=== PATIENT | female | born 1945 | race Two or more races ===

== ENCOUNTER 2024-11-30 22:19 | Inpatient (IN) ==
--- NOTE | 2024-11-30 22:51 | ED.ABDFE ---
HPI Time Seen Time Seen by Provider: 11/30/24 22:39 Complaint Doctors Chief Complaint Comments: 79-year-old female, hx DM, HTN, GERD, abdominal surgical history of , no other medical history or surgical history, complains of lower abdominal pain for the past 3 months, became markedly worse the past 2 days, right upper quadrant and right lower quadrant abdominal pain, accompanied by 3 episodes of vomiting earlier today, 2 episodes of diarrhea yesterday. Denies fever. Denies other complaints. Chief Complaint:: PT AMBULATORY IN ED WITH COMPLAINTS OF BILATERAL LOWER QUADRANT PAIN X2 DAYS. WITH N/V & DIARRHEA WORSE AFTER EATING. STATES HER WHOLE ABDOMEN HANDY WHEN SHE TRIES TO EAT, NO REBOUND TENDERNESS NOTED BUT ABDOMEN APPEARS DISTENED. PT HAS HX OF ASCITES PER SON COVID-19 Coronavirus risk:travel/contact w/high risk person: No Has patient experienced Coronavirus symptoms: No Source History Provided: Patient Mode of arrival Mode of Arrival: Ambulatory Timing Onset of Chief Complaint: 11/29/24 PMH PMH Past Medical History: No Past Medical History: Diabetes, GERD and Hypertension Past Surgical History: Yes Surgical History: Family History History of Family Medical Conditions: Yes Family Medical History: Hypertension Social History Do you use any recreational Drugs:: No Travel Risk Coronavirus risk:travel/contact w/high risk person: No Has patient experienced Coronavirus symptoms: No Infectious screening Have you traveled outside the country in the last 6 months?: No Isolation: Standard ROS Review of Systems Constitutional: negative Chills or Fever Gastrointestinal/Abdominal: Abdominal Pain (RUQ & RLQ), Diarrhea, Nausea and Vomiting All Other Systems: Reviewed and Negative PE Vital Signs Vitals: Vital Signs Temperature 97.8 F Pulse Rate 64 Respiratory Rate 18 Respiratory Rate 20 Blood Pressure 132/60 O2 Sat by Pulse Oximetry 95 General Limitations: No Limitations and Language Barrier General Appearance: Alert and In No Apparent Distress Head Head Exam: Normal Inspection Eyes Eye exam: Normal Appearance ENT ENT Exam: Normal Exam Neck Neck Exam: Normal Inspection Chest Chest Inspection: Normal Inspection Respiratory Respiratory Exam: Normal Lung Sounds Bilat Cardiovascular Cardiovascular Exam: Regular Rate and Normal Rhythm Abdominal Exam Abdominal Exam: Soft and Tenderness; negative Distention, Guarding, Rebound or Rigidity Abdominal Tenderness: RUQ and RLQ Rectal Rectal Exam: Deferred Back Back Exam: Normal Inspection Extremeties Extremities Exam: Normal Inspection Neurologic Neurological Exam: Alert and Oriented X3 Psychiatric Psychiatric Exam: Normal Affect and Normal Mood Skin Skin Exam: Warm, Dry and Intact ROR Labs Reviewed Laboratory Results Reviewed?: Yes 11/30/24 22:55 11/30/24 22:55 Laboratory: WBC 3.5 X10^3/uL (3.6-10.0) L 11/30/24 22:55 RBC 4.15 X10^6/uL (3.5-5.4) 11/30/24 22:55 Hgb 13.3 g/dL (12.0-16.0) 11/30/24 22:55 Hct 39.3 % (36.0-47.0) 11/30/24 22:55 MCV 94.9 fL (80.0-100.0) 11/30/24 22: MCH 32.2 pg (27.0-34.0) 11/30/24 22: MCHC 33.9 g/dL (33.0-35.0) 11/30/24 22: RDW 14.1 % (11.6-16.5) 11/30/24 22:55 Plt Count 175 X10^3/uL (150.0-450.0) 11/30/24 22: MPV 8.0 fL (7.4-11.0) 11/30/24 22:55 Neut % (Auto) 70.8 % (42.0-75.0) 11/30/24 22:55 Lymph % (Auto) 17.4 % (21.0-51.0) L 11/30/24 22:55 [place] % (Auto) 7.5 % (0.0-13.0) 11/30/24 22:55 Eos % (Auto) 3.5 % (0.9-2.9) H 11/30/24 22:55 Baso % (Auto) 0.8 % (0.2-1.0) 11/30/24 22:55 Neut # (Auto) 2.5 x10^3/uL (2.2-4.8) 11/30/24 22:55 Lymph # (Auto) 0.6 X10^3/uL (1.3-2.9) L 11/30/24 22:55 [place] # (Auto) 0.3 x10^3/uL (0.3-0.8) 11/30/24 22:55 Eos # (Auto) 0.1 x10^3/uL (0.0-0.2) 11/30/24 22:55 Baso # (Auto) 0.0 X10^3/uL (0.0-0.1) 11/30/24 22:55 Absolute Nucleated RBC 0.3 /100WBC 11/30/24 22:55 Sodium 142 mmol/L (136-145) 11/30/24 22:55 Corrected Sodium TNP 11/30/24 22:55 Potassium 3.9 mmol/L (3.5-5.1) 11/30/24 22:55 Chloride 106 mmol/L (98-107) 11/30/24 22:55 Carbon Dioxide 31.9 mmol/L (21-32) 11/30/24 22:55 BUN 21 mg/dL (7-18) H 11/30/24 22:55 Creatinine 0.59 mg/dL (0.55-1.02) 11/30/24 22:55 Est GFR (MDRD) Af Amer > 60 (>60) 11/30/24 22:55 Est GFR (MDRD) Non-Af > 60 (>60) 11/30/24 22:55 Glucose 98 mg/dL (65-99) 11/30/24 22:55 Calcium 8.5 mg/dL (8.5-10.1) 11/30/24 22:55 Corrected Calcium 9.1 mg/dL (8.5-10.1) 11/30/24 22:55 Total Bilirubin 0.60 mg/dL (0.2-1.0) 11/30/24 22:55 AST 37 Units/L (15-37) 11/30/24 22:55 ALT 41 Units/L (12-78) 11/30/24 22:55 Alkaline Phosphatase 102 Units/L (46-116) 11/30/24 22:55 Total Protein 6.8 g/dL (6.4-8.2) 11/30/24 22:55 Albumin 3.3 g/dL (3.4-5.0) L 11/30/24 22:55 Globulin 3.5 g/dL (2.5-4.5) 11/30/24 22:55 Albumin/Globulin Ratio 0.9 Ratio (1.1-2.1) L 11/30/24 22:55 Lipase 18 Units/L (16-77) 11/30/24 22:55 Specimen Type Clean catch urine 11/30/24 23:42 Urine Color Estella (YELLOW) 11/30/24 23:42 Urine Appearance Clear (CLEAR) 11/30/24 23:42 Urine pH 6.0 (5.0 - 8.0) 11/30/24 23:42 Ur Specific [place] 1.015 (1.000-1.030) 11/30/24 23:42 Urine Protein 2+ (NEGATIVE) 11/30/24 23:42 Urine Glucose (UA) Negative (NEGATIVE) 11/30/24 23:42 Urine Ketones Negative (NEGATIVE) 11/30/24 23:42 Urine Blood 1+ (NEGATIVE) 11/30/24 23:42 Urine Nitrite Negative (NEGATIVE) 11/30/24 23:42 Urine Bilirubin Negative (NEGATIVE) 11/30/24 23:42 Urine Urobilinogen 2+ (NORMAL) 11/30/24 23:42 Ur Leukocyte Esterase 3+ (NEGATIVE) 11/30/24 23:42 Urine RBC 3-5 /HPF (0-3) A 11/30/24 23:42 Urine WBC 5-10 /HPF (0-5) A 11/30/24 23:42 Ur Squamous Epith Cells Moderate /HPF (NEGATIVE) 11/30/24 23:42 Urine Bacteria Trace /HPF (NEGATIVE) 11/30/24 23:42 Urine Mucus Many /HPF (NEGATIVE) 11/30/24 23:42 Ur Culture Indicated? No/not indicated 11/30/24 23:42 Opioid Opioid Risk Tool Age (Nestor box if 16-45): No History of Preadolescent Sexual Abuse: No Total: 0 Total Score Risk Category: Low Risk Copyright: Reddy predicting aberrant behaviors Discharge Plan Diagnosis Discharge Problem: Acute UTI, SBO (small bowel obstruction), Ileus Discharge Plan Patient Disposition: ADMITTED INPATIENT Condition: Stable Health Concerns: Post Hospitalization: new medications and changes needed to prevent readmission or further decline. Pt educated and given instructions on all concerns. Plan of Treatment: Continue with present treatment and follow up plan. Pt is to keep follow up appointment as instructed and take medications as ordered. Orders to Discharge Patient Discharge Orders: Transfer (Routine); Ordered 12/01/24 Ordered By: Andre Montana Follow ups/Referrals Follow ups/Referrals: NFD,None [Primary Care Provider] - 3 days Instructions Stand Alone Forms: Find Help Web Site, Post Hospital Follow Up Care ADDITIONAL NOTES Additional Notes Additional Notes: pt admitted to Dr Stephen
[2024-11-30] MEDS: ZOFRAN INJ 4 MG VIAL IVP ONE (22:59)
[2024-11-30] MEDS: MORPHINE SULFATE INJ 4 MG IVP ONE (23:01)
[2024-11-30 23:09] LABS: BASOPHILS % (AUTO) 0.8 % (0.2-1.0); EOSINOPHILS # (AUTO) 0.1 x10^3/uL (0.0-0.2); EOSINOPHILS % (AUTO) 3.5 % (0.9-2.9); HEMATOCRIT 39.3 % (36.0-47.0); HEMOGLOBIN 13.3 g/dL (12.0-16.0); LYMPHOCYTES # (AUTO) 0.6 X10^3/uL (1.3-2.9); LYMPHOCYTES % (AUTO) 17.4 % (21.0-51.0); MEAN CORPUSCULAR HEMOGLOBIN 32.2 pg (27.0-34.0); MEAN CORPUSCULAR HGB CONC 33.9 g/dL (33.0-35.0); MEAN CORPUSCULAR VOLUME 94.9 fL (80.0-100.0); MONOCYTES # (AUTO) 0.3 x10^3/uL (0.3-0.8); MONOCYTES % (AUTO) 7.5 % (0.0-13.0); NEUTROPHILS # (AUTO) 2.5 x10^3/uL (2.2-4.8); NEUTROPHILS % (AUTO) 70.8 % (42.0-75.0); PLATELET COUNT 175 X10^3/uL (150.0-450.0); RED BLOOD COUNT 4.15 X10^6/uL (3.5-5.4); RED CELL DISTRIBUTION WIDTH 14.1 % (11.6-16.5); WHITE BLOOD COUNT 3.5 X10^3/uL (3.6-10.0)
[2024-11-30 23:14] LABS: ALANINE AMINOTRANSFERASE 41 Units/L (12-78); ALBUMIN 3.3 g/dL (3.4-5.0); ALKALINE PHOSPHATASE 102 Units/L (46-116); ASPARTATE AMINO TRANSFERASE 37 Units/L (15-37); BLOOD UREA NITROGEN 21 mg/dL (7-18); CALCIUM 8.5 mg/dL (8.5-10.1); CARBON DIOXIDE 31.9 mmol/L (21-32); CHLORIDE 106 mmol/L (98-107); COR CA(FOR HYPOALB) 9.1 mg/dL (8.5-10.1); CREATININE 0.59 mg/dL (0.55-1.02); GLUCOSE 98 mg/dL (65-99); LIPASE 18 Units/L (16-77); SODIUM 142 mmol/L (136-145); TOTAL PROTEIN 6.8 g/dL (6.4-8.2); eGFR NON BLACK RACES > 60 (>60)
[2024-11-30 23:20] LABS: POTASSIUM 3.9 mmol/L (3.5-5.1)
[2024-11-30 23:53] LABS: BILIRUBIN,URINE NEGATIVE (NEGATIVE); BLOOD/HEMOGLOBIN,URINE 1+ (NEGATIVE); GLUCOSE, URINE NEGATIVE (NEGATIVE); KETONES,URINE NEGATIVE (NEGATIVE); LEUKOCYTE ESTERASE ,URINE 3+ (NEGATIVE); NITRITES,URINE NEGATIVE (NEGATIVE); PROTEIN,URINE 2+ (NEGATIVE); UROBILINOGEN,URINE 2+ (NORMAL)
--- NOTE | 2024-11-30 23:54 | CT ---
EXAM:ABDCMEN/PELVIS WITH CONHISTORY:PT AMBULATORY IN ED WITH COMPLAINTS OF BILATERAL LOWER QUADRANT PAIN X2 DAYS. WITH N/V & DIARRHEA WORSE AFTER EATING. PT HAS A HX OF ASCITES; HTN, DM, GERD SX: CSECTIONCOMPARISON:October 05, 2023TECHNIQUE:Axial CT images of the abdomen and pelvis were obtained after the administration of 100 mL Omnipaque 350 IV contrast and reformatted into coronal and sagittal planes for further evaluation.Radiation dose: 174.95 mGy-cm total DLPFINDINGS:Lung bases are clear.Stomach appears normal.Solid visceral organs of the upper abdomen are unremarkable.Gallbladder appears normal with no biliary dilatation.Homogeneous enhancement of the kidneys without hydronephrosis or hydroureter.Unremarkable appearance of the urinary bladder.Imaged reproductive structures are unremarkable.Colonic diverticulosis without diverticulitis.Multiple loops of mildly distended fluid-filled small bowel throughout the majority of the abdomen with the distal small bowel largely decompressed.No evidence of acute appendicitis.No pneumoperitoneum.No significant fluid collection.No adenopathy.No acute osseous abnormality.Grade 1 anterolisthesis of L4 on L5 secondary to posterior degenerative changes.IMPRESSION:1. Multiple loops of mildly distended fluid-filled small bowel throughout the majority of the abdomen with the distal small bowel largely decompressed. The transition point from dilated to decompressed small bowel is not definitively identified. Findings could represent a nonspecific enteritis, ileus or mild mechanical obstruction.2. Colonic diverticulosis without diverticulitis.THIS IS AN ELECTRONICALLY VERIFIED FINAL REPORT11/30/2024 11:50 PM - Electronically signed by Elliot Stoner MD
[2024-11-30 23:56] LABS: APPEARANCE,URINE CLEAR (CLEAR); BACTERIA,URINE TRACE /HPF (NEGATIVE); COLOR,URINE AMBER (YELLOW); SQUAMOUS EPITHELIAL CELL,UR MODERATE /HPF (NEGATIVE)
[2024-12-01] MEDS: ROCEPHIN VIAL 1 GRAM 1 G in NS 100 ML IV 100 ML IV ONE (00:33)
[2024-12-01] MEDS: NS 1,000 ML IV 1,000 ML IV SCH (01:16)
[2024-12-01 01:43] VITALS: BMI 23.9
[2024-12-01 04:59] LABS: BASOPHILS % (AUTO) 0.5 % (0.2-1.0); EOSINOPHILS # (AUTO) 0.1 x10^3/uL (0.0-0.2); EOSINOPHILS % (AUTO) 4.4 % (0.9-2.9); HEMOGLOBIN 12.9 g/dL (12.0-16.0); LYMPHOCYTES # (AUTO) 0.6 X10^3/uL (1.3-2.9); LYMPHOCYTES % (AUTO) 23.1 % (21.0-51.0); MEAN CORPUSCULAR HEMOGLOBIN 32.2 pg (27.0-34.0); MEAN CORPUSCULAR HGB CONC 33.8 g/dL (33.0-35.0); MEAN CORPUSCULAR VOLUME 95.2 fL (80.0-100.0); MONOCYTES # (AUTO) 0.3 x10^3/uL (0.3-0.8); MONOCYTES % (AUTO) 11.1 % (0.0-13.0); NEUTROPHILS # (AUTO) 1.5 x10^3/uL (2.2-4.8); NEUTROPHILS % (AUTO) 60.9 % (42.0-75.0); PLATELET COUNT 155 X10^3/uL (150.0-450.0); RED BLOOD COUNT 3.99 X10^6/uL (3.5-5.4); WHITE BLOOD COUNT 2.5 X10^3/uL (3.6-10.0)
[2024-12-01 05:03] LABS: INR 1.11 (0.8-1.3)
[2024-12-01 05:27] LABS: ALANINE AMINOTRANSFERASE 34 Units/L (12-78); ALKALINE PHOSPHATASE 98 Units/L (46-116); ASPARTATE AMINO TRANSFERASE 26 Units/L (15-37); BLOOD UREA NITROGEN 17 mg/dL (7-18); CALCIUM 8.2 mg/dL (8.5-10.1); CARBON DIOXIDE 31.4 mmol/L (21-32); CHLORIDE 104 mmol/L (98-107); CHOL/HDL RATIO 2.3 (0.0-5.0); CHOLESTEROL 122 mg/dL (0-200); CREATININE 0.46 mg/dL (0.55-1.02); GLUCOSE 89 mg/dL (65-99); HDL CHOLESTEROL 54 mg/dL (40-60); MAGNESIUM 1.9 mg/dL (2.0-2.9); POTASSIUM 3.6 mmol/L (3.5-5.1); SODIUM 139 mmol/L (136-145); TOTAL PROTEIN 6.3 g/dL (6.4-8.2); TRIGLYCERIDES 48 mg/dL (0-150); eGFR NON BLACK RACES > 60 (>60)
[2024-12-01] MEDS: OMNIPAQUE 350 mg/mL 100 mL BTL 100 ML ONE (05:29)
[2024-12-01] MEDS: NS 100 ML IV 100 ML ONE (05:29)
[2024-12-01] MEDS ORDERED: CONSULT PHARMACY - POTASSIUM & MAGNESIUM XX SCH (07:00)
[2024-12-01] MEDS ORDERED: MAG-OX TAB PO SCH (09:00)
[2024-12-01] MEDS: K-DUR TAB 20 MEQ PO SCH (10:16)
[2024-12-01] MEDS: NS + KCL 20 MEQ/L 1,000 ML with MAGNESIUM SULFATE 50% INJ VIAL 1 G IV SCH (11:00)
--- NOTE | 2024-12-01 12:39 | DR.H&P ---
H&P History & Physical for Day of: H&P Date: 12/01/24 Chief Complaint Chief Complaint: Abdominal pain History of Present Illness History of Present Illness: Patient presented to the ER from home with worsening lower abdominal pain. Initial concern was for UTI but CT showed partial small bowel obstruction. She is feeling much better this morning with no nausea, vomiting, or diarrhea. She has passed gas but not tried to eat anything. Came to the ER due to not eating or drinking anything for 2 days. When she tried to drink some water yesterday she had severe, sharp pains in her abdomen with a burning sensation. She has been seeing GI in [place] over the last 3 to 4 years for similar presentations. Only abdominal surgeries are section. ROS: Limited due to language barrier. Son at bedside was used as an certified court interpreter. 12 point ROS negative except as noted above. PE: Elderly female in no acute distress. Alert. Head NCAT. EOMI. Hearing intact conversation. Heart regular rate and rhythm. Lungs are clear. Belly is soft with lower abdominal tenderness. Bowel sounds are hypoactive. Mood and affect are guarded. No swelling of her extremities. Past Medical History Past Medical History: Diabetes, GERD and Hypertension Past Surgical History Surgical History: Family History Family Medical History: Hypertension Social History Does patient currently use any type of tobacco product: No Type of Tobacco Use: None Does any household member use tobacco: No Alcohol Use: None Drug Use: None Medications Home Medications: Home Medications Medication Instructions Recorded Confirmed Type NK 12/01/24 12/01/24 History Allergies Allergies Allergy/AdvReac Type Severity Reaction Status Date / Time No Known Drug Allergies Allergy Verified 11/30/24 22:30 Labs 12/01/24 04:33 12/01/24 04:33 Labs: Laboratory WBC 2.5 X10^3/uL (3.6-10.0) L 12/01/24 04:33 RBC 3.99 X10^6/uL (3.5-5.4) 12/01/24 04:33 Hgb 12.9 g/dL (12.0-16.0) 12/01/24 04:33 Hct 38.0 % (36.0-47.0) 12/01/24 04:33 MCV 95.2 fL (80.0-100.0) 12/01/24 04:33 MCH 32.2 pg (27.0-34.0) 12/01/24 04:33 MCHC 33.8 g/dL (33.0-35.0) 12/01/24 04:33 RDW 14.0 % (11.6-16.5) 12/01/24 04:33 Plt Count 155 X10^3/uL (150.0-450.0) 12/01/24 04:33 MPV 8.0 fL (7.4-11.0) 12/01/24 04:33 Neut % (Auto) 60.9 % (42.0-75.0) 12/01/24 04:33 Lymph % (Auto) 23.1 % (21.0-51.0) 12/01/24 04:33 [place] % (Auto) 11.1 % (0.0-13.0) 12/01/24 04:33 Eos % (Auto) 4.4 % (0.9-2.9) H 12/01/24 04:33 Baso % (Auto) 0.5 % (0.2-1.0) 12/01/24 04:33 Neut # (Auto) 1.5 x10^3/uL (2.2-4.8) L 12/01/24 04:33 Lymph # (Auto) 0.6 X10^3/uL (1.3-2.9) L 12/01/24 04:33 [place] # (Auto) 0.3 x10^3/uL (0.3-0.8) 12/01/24 04:33 Eos # (Auto) 0.1 x10^3/uL (0.0-0.2) 12/01/24 04:33 Baso # (Auto) 0.0 X10^3/uL (0.0-0.1) 12/01/24 04:33 Absolute Nucleated RBC 0.0 /100WBC 12/01/24 04:33 PT 14.0 SECONDS (11.8-14.3) 12/01/24 04:33 INR Target Range - 12/01/24 04:33 INR 1.11 (0.8-1.3) 12/01/24 04:33 APTT 32.5 SECONDS (22.9-36.5) 12/01/24 04:33 PTT Comment - 12/01/24 04:33 Sodium 139 mmol/L (136-145) 12/01/24 04:33 Corrected Sodium TNP 12/01/24 04:33 Potassium 3.6 mmol/L (3.5-5.1) 12/01/24 04:33 Chloride 104 mmol/L (98-107) 12/01/24 04:33 Carbon Dioxide 31.4 mmol/L (21-32) 12/01/24 04:33 BUN 17 mg/dL (7-18) 12/01/24 04:33 Creatinine 0.46 mg/dL (0.55-1.02) L 12/01/24 04:33 Est GFR (MDRD) Af Amer > 60 (>60) 12/01/24 04:33 Est GFR (MDRD) Non-Af > 60 (>60) 12/01/24 04:33 Glucose 89 mg/dL (65-99) 12/01/24 04:33 Calcium 8.2 mg/dL (8.5-10.1) L 12/01/24 04:33 Corrected Calcium 9.0 mg/dL (8.5-10.1) 12/01/24 04:33 Magnesium 1.9 mg/dL (2.0-2.9) L 12/01/24 04:33 Total Bilirubin 0.30 mg/dL (0.2-1.0) 12/01/24 04:33 AST 26 Units/L (15-37) 12/01/24 04:33 ALT 34 Units/L (12-78) 12/01/24 04:33 Alkaline Phosphatase 98 Units/L (46-116) 12/01/24 04:33 Total Protein 6.3 g/dL (6.4-8.2) L 12/01/24 04:33 Albumin 3.0 g/dL (3.4-5.0) L 12/01/24 04:33 Globulin 3.3 g/dL (2.5-4.5) 12/01/24 04:33 Albumin/Globulin Ratio 0.9 Ratio (1.1-2.1) L 12/01/24 04:33 Triglycerides 48 mg/dL (0-150) 12/01/24 04:33 Cholesterol 122 mg/dL (0-200) 12/01/24 04:33 LDL Cholesterol, Calc 58 mg/dL (0-100) 12/01/24 04:33 HDL Cholesterol 54 mg/dL (40-60) 12/01/24 04:33 Cholesterol/HDL Ratio 2.3 (0.0-5.0) 12/01/24 04:33 Lipase 18 Units/L (16-77) 11/30/24 22:55 Specimen Type Clean catch urine 11/30/24 23:42 Urine Color Estella (YELLOW) 11/30/24 23:42 Urine Appearance Clear (CLEAR) 11/30/24 23:42 Urine pH 6.0 (5.0 - 8.0) 11/30/24 23:42 Ur Specific [place] 1.015 (1.000-1.030) 11/30/24 23:42 Urine Protein 2+ (NEGATIVE) 11/30/24 23:42 Urine Glucose (UA) Negative (NEGATIVE) 11/30/24 23:42 Urine Ketones Negative (NEGATIVE) 11/30/24 23:42 Urine Blood 1+ (NEGATIVE) 11/30/24 23:42 Urine Nitrite Negative (NEGATIVE) 11/30/24 23:42 Urine Bilirubin Negative (NEGATIVE) 11/30/24 23:42 Urine Urobilinogen 2+ (NORMAL) 11/30/24 23:42 Ur Leukocyte Esterase 3+ (NEGATIVE) 11/30/24 23:42 Urine RBC 3-5 /HPF (0-3) A 11/30/24 23:42 Urine WBC 5-10 /HPF (0-5) A 11/30/24 23:42 Ur Squamous Epith Cells Moderate /HPF (NEGATIVE) 11/30/24 23:42 Urine Bacteria Trace /HPF (NEGATIVE) 11/30/24 23:42 Urine Mucus Many /HPF (NEGATIVE) 11/30/24 23:42 Ur Culture Indicated? No/not indicated 11/30/24 23:42 Physical Exam Vital Signs: Vital Signs Temperature 97.8 F Temperature 97.8 F Pulse Rate [Left Radial] 55 Pulse Rate [Left Radial] 57 Respiratory Rate 31 Respiratory Rate 18 Respiratory Rate 18 Blood Pressure [Left Arm] 145/66 Blood Pressure [Left Arm] 176/76 O2 Sat by Pulse Oximetry 100 O2 Sat by Pulse Oximetry 97 Assessment/Plan (1) SBO (small bowel obstruction): Narrative Support Text: N.p.o. for now. IV fluids. Appreciate surgery input. Status: Acute (2) Ileus: Narrative Support Text: See above. Status: Acute (3) Type 2 diabetes mellitus without complications: Qualifiers: Diabetes mellitus nursing home insulin use: without exterminator helper termite use Qualified Code(s): E11.9 - Type 2 diabetes mellitus without complications Narrative Support Text: Monitor closely. Status: Acute (4) Essential (primary) hypertension: Narrative Support Text: Permissive hypertension for now Status: Acute
--- NOTE | 2024-12-01 14:11 | US ---
EXAMINATION: GALL BLADDER HISTORY: abd pain, food intolerance, sbo ,utiileus; . COMPARISON STUDY: None. TECHNIQUE: Real-time grayscale, color flow, duplex Doppler spectral analysis ultrasound of the right upper abdom inal quadrant FINDINGS: Liver measures 13 cm longitudinal oblique dimension no focal liver lesions seen. Normal venous wavef orms within the main portal vein and normal arterial waveforms main hepatic artery. The hepatic vein s are patent on the color flow images. Gallbladder mildly distended. Gallbladder rivera measure 2.4 mm diameter. No pericholecystic fluid. Common bile duct measures 4.2 mm diameter. No intrahepatic bile duct dilatation. No pancreatic duct dilatation. Limited views of the right kidney show no hydronephrosis IMPRESSION: The biliary tract has a normal appearance. THIS IS AN ELECTRONICALLY VERIFIED FINAL REPORT 12/01/2024 2:07 PM - Electronically signed by Darleen Grimes MD
[2024-12-01] MEDS: MORPHINE SULFATE INJ 2 MG INJ IVP PRN (15:02)
--- NOTE | 2024-12-01 16:17 | RAD ---
EXAM: KUB HISTORY: abd pain; HTN, DM, GERD SX: CSECTION COMPARISON: CT dated 11/30/2024 TECHNIQUE: Abdomen AP supine FINDINGS: No abnormally distended bowel loops. Scattered air-filled small and large bowel loops. No evidence of free peritoneal air. Clear lung bases. IMPRESSION: Nonobstructive bowel gas pattern. THIS IS AN ELECTRONICALLY VERIFIED FINAL REPORT 12/01/2024 4:08 PM - Electronically signed by Bi Diaz MD
[2024-12-02 06:02] LABS: BASOPHILS % (AUTO) 0.4 % (0.2-1.0); EOSINOPHILS # (AUTO) 0.1 x10^3/uL (0.0-0.2); EOSINOPHILS % (AUTO) 2.2 % (0.9-2.9); HEMATOCRIT 39.8 % (36.0-47.0); HEMOGLOBIN 13.7 g/dL (12.0-16.0); LYMPHOCYTES # (AUTO) 0.7 X10^3/uL (1.3-2.9); LYMPHOCYTES % (AUTO) 19.5 % (21.0-51.0); MEAN CORPUSCULAR HEMOGLOBIN 32.7 pg (27.0-34.0); MEAN CORPUSCULAR HGB CONC 34.4 g/dL (33.0-35.0); MEAN CORPUSCULAR VOLUME 95.2 fL (80.0-100.0); MEAN PLATELET VOLUME 8.1 fL (7.4-11.0); MONOCYTES # (AUTO) 0.3 x10^3/uL (0.3-0.8); MONOCYTES % (AUTO) 7.8 % (0.0-13.0); NEUTROPHILS # (AUTO) 2.7 x10^3/uL (2.2-4.8); NEUTROPHILS % (AUTO) 70.1 % (42.0-75.0); PLATELET COUNT 163 X10^3/uL (150.0-450.0); RED BLOOD COUNT 4.18 X10^6/uL (3.5-5.4); RED CELL DISTRIBUTION WIDTH 13.4 % (11.6-16.5); WHITE BLOOD COUNT 3.8 X10^3/uL (3.6-10.0)
[2024-12-02 06:24] LABS: ALANINE AMINOTRANSFERASE 29 Units/L (12-78); ALBUMIN 3.2 g/dL (3.4-5.0); ALKALINE PHOSPHATASE 105 Units/L (46-116); ASPARTATE AMINO TRANSFERASE 26 Units/L (15-37); BLOOD UREA NITROGEN 14 mg/dL (7-18); CALCIUM 8.2 mg/dL (8.5-10.1); CARBON DIOXIDE 25.1 mmol/L (21-32); CHLORIDE 105 mmol/L (98-107); COR CA(FOR HYPOALB) 8.8 mg/dL (8.5-10.1); CREATININE 0.49 mg/dL (0.55-1.02); GLUCOSE 53 mg/dL (65-99); MAGNESIUM 2.1 mg/dL (2.0-2.9); POTASSIUM 3.8 mmol/L (3.5-5.1); SODIUM 140 mmol/L (136-145); TOTAL PROTEIN 6.5 g/dL (6.4-8.2); eGFR NON BLACK RACES > 60 (>60)
--- NOTE | 2024-12-02 06:59 | RAD ---
EXAMINATION:KUBHISTORY:PARTIAL SBO; .COMPARISON STUDY:KUB 12/02/2019TECHNIQUE:Single supine AP view of the abdomenFINDINGS:Jtxo-vu-nejhhavd amount of feces throughout the colon. Visualized soft tissue outlines and osseous structures appear intact. Lower bony pelvis was not imaged.IMPRESSION:Jxce-ej-eisjfgqj amount of feces.THIS IS AN ELECTRONICALLY VERIFIED FINAL REPORT12/02/2024 6:56 AM - Electronically signed by Darleen Grimes MD
[2024-12-02] MEDS: D50W ABBOJECT SYR IV ONE (07:42)
[2024-12-02] MEDS: LINZESS PO SCH (09:50)
[2024-12-02] MEDS: LOVENOX INJ 40 MG SYR SC SCH (09:51)
[2024-12-02 13:36] VITALS: BP 147/65; PULSE 61; RESP 34; TEMP 97.6; O2SAT 98
--- NOTE | 2024-12-05 09:36 | PCM.DCPLAN ---
DISCHARGE SUMMARY Admission Date Date of Admission: 11/30/24 Discharge Date Discharge Date: 12/02/24 Admission Diagnoses (1) SBO (small bowel obstruction): Status: Acute (2) Ileus: Status: Acute (3) Type 2 diabetes mellitus without complications: Status: Acute (4) Essential (primary) hypertension: Status: Acute Discharge Medications Discharge Medications: Home Medication List linaclotide 145 mcg capsule (Linzess) 145 mcg PO QDAY #14 caps 12/02/24 [Rx] Prescriptions[facility] Vital Signs: Vital Signs Temperature 97.6 F Temperature 97.9 F Pulse Rate 61 Pulse Rate 55 Pulse Rate 60 Pulse Rate 52 Pulse Rate 57 Pulse Rate 59 Respiratory Rate 34 Respiratory Rate 23 Respiratory Rate 20 Respiratory Rate 13 Respiratory Rate 15 Respiratory Rate 19 Blood Pressure 147/65 Blood Pressure 141/60 O2 Sat by Pulse Oximetry 98 O2 Sat by Pulse Oximetry 98 O2 Sat by Pulse Oximetry 97 O2 Sat by Pulse Oximetry 96 O2 Sat by Pulse Oximetry 93 O2 Sat by Pulse Oximetry 95 Latest Lab Results: Laboratory Last Values WBC 3.8 X10^3/uL (3.6-10.0) 12/02/24 05:12 RBC 4.18 X10^6/uL (3.5-5.4) 12/02/24 05:12 Hgb 13.7 g/dL (12.0-16.0) 12/02/24 05:12 Hct 39.8 % (36.0-47.0) 12/02/24 05:12 MCV 95.2 fL (80.0-100.0) 12/02/24 05:12 MCH 32.7 pg (27.0-34.0) 12/02/24 05:12 MCHC 34.4 g/dL (33.0-35.0) 12/02/24 05:12 RDW 13.4 % (11.6-16.5) 12/02/24 05:12 Plt Count 163 X10^3/uL (150.0-450.0) 12/02/24 05:12 MPV 8.1 fL (7.4-11.0) 12/02/24 05:12 Neut % (Auto) 70.1 % (42.0-75.0) 12/02/24 05:12 Lymph % (Auto) 19.5 % (21.0-51.0) L 12/02/24 05:12 [place] % (Auto) 7.8 % (0.0-13.0) 12/02/24 05:12 Eos % (Auto) 2.2 % (0.9-2.9) 12/02/24 05:12 Baso % (Auto) 0.4 % (0.2-1.0) 12/02/24 05:12 Neut # (Auto) 2.7 x10^3/uL (2.2-4.8) 12/02/24 05:12 Lymph # (Auto) 0.7 X10^3/uL (1.3-2.9) L 12/02/24 05:12 [place] # (Auto) 0.3 x10^3/uL (0.3-0.8) 12/02/24 05:12 Eos # (Auto) 0.1 x10^3/uL (0.0-0.2) 12/02/24 05:12 Baso # (Auto) 0.0 X10^3/uL (0.0-0.1) 12/02/24 05:12 Absolute Nucleated RBC 0.1 /100WBC 12/02/24 05:12 PT 14.0 SECONDS (11.8-14.3) 12/01/24 04:33 INR Target Range - 12/01/24 04:33 INR 1.11 (0.8-1.3) 12/01/24 04:33 APTT 32.5 SECONDS (22.9-36.5) 12/01/24 04:33 PTT Comment - 12/01/24 04:33 Sodium 140 mmol/L (136-145) 12/02/24 05:12 Corrected Sodium TNP 12/02/24 05:12 Potassium 3.8 mmol/L (3.5-5.1) 12/02/24 05:12 Chloride 105 mmol/L (98-107) 12/02/24 05:12 Carbon Dioxide 25.1 mmol/L (21-32) 12/02/24 05:12 BUN 14 mg/dL (7-18) 12/02/24 05:12 Creatinine 0.49 mg/dL (0.55-1.02) L 12/02/24 05:12 Est GFR (MDRD) Af Amer > 60 (>60) 12/02/24 05:12 Est GFR (MDRD) Non-Af > 60 (>60) 12/02/24 05:12 Glucose 53 mg/dL (65-99) L 12/02/24 05:12 POC Glucose (mg/dL) 172 mg/dL (65-99) H 12/02/24 08:52 Calcium 8.2 mg/dL (8.5-10.1) L 12/02/24 05:12 Corrected Calcium 8.8 mg/dL (8.5-10.1) 12/02/24 05:12 Magnesium 2.1 mg/dL (2.0-2.9) 12/02/24 05:12 Total Bilirubin 0.40 mg/dL (0.2-1.0) 12/02/24 05:12 AST 26 Units/L (15-37) 12/02/24 05:12 ALT 29 Units/L (12-78) 12/02/24 05:12 Alkaline Phosphatase 105 Units/L (46-116) 12/02/24 05:12 Total Protein 6.5 g/dL (6.4-8.2) 12/02/24 05:12 Albumin 3.2 g/dL (3.4-5.0) L 12/02/24 05:12 Globulin 3.3 g/dL (2.5-4.5) 12/02/24 05:12 Albumin/Globulin Ratio 1.0 Ratio (1.1-2.1) L 12/02/24 05:12 Triglycerides 48 mg/dL (0-150) 12/01/24 04:33 Cholesterol 122 mg/dL (0-200) 12/01/24 04:33 LDL Cholesterol, Calc 58 mg/dL (0-100) 12/01/24 04:33 HDL Cholesterol 54 mg/dL (40-60) 12/01/24 04:33 Cholesterol/HDL Ratio 2.3 (0.0-5.0) 12/01/24 04:33 Lipase 18 Units/L (16-77) 11/30/24 22:55 Specimen Type Clean catch urine 11/30/24 23:42 Urine Color [place]ella (YELLOW) 11/30/24 23:42 Urine Appearance Clear (CLEAR) 11/30/24: Urine pH 6.0 (5.0 - 8.0) 11/30/24 23: Ur Specific [place] 1.015 (1.000-1.030) 11/30/24 23: Urine Protein 2+ (NEGATIVE) 11/30/24 23: Urine Glucose (UA) Negative (NEGATIVE) 11/30/24 23: Urine Ketones Negative (NEGATIVE) 11/30/24: Urine Blood 1+ (NEGATIVE) 11/30/24: Urine Nitrite Negative (NEGATIVE) 11/30/24 23: Urine Bilirubin Negative (NEGATIVE) 11/30/24 23: Urine Urobilinogen 2+ (NORMAL) 11/30/24: Ur Leukocyte Esterase 3+ (NEGATIVE) 11/30/24: Urine RBC 3-5 /HPF (0-3) A 11/30/24 23: Urine WBC 5-10 /HPF (0-5) A 11/30/24: Ur Squamous Epith Cells Moderate /HPF (NEGATIVE) 11/30/24 23: Urine Bacteria Trace /HPF (NEGATIVE) 11/30/24 23: Urine Mucus Many /HPF (NEGATIVE) 11/30/24 23: Ur Culture Indicated? No/not indicated 11/30/24 23: Hospital Course: Patient admitted with approximately a week of worsening lower abdominal pain. Had had poor p.o. intake for 2 days prior to admission. Try to drink some water with severe burning and aching in her abdomen afterwards. Presented to the ER and found to have a partial small bowel obstruction. She was admitted with an n.p.o. status and on IV fluids. She responded slowly and steadily. Surgery did evaluate her and recommended close monitoring. She steadily improved to the point that she was able to tolerate a soft diet with no difficulty. Pain was resolved at time of discharge. Amari was sent to help with bowel movements as she did have a moderate stool burden. She did have a bowel movement before discharge. Patient was discharged home with plans to follow-up with GI and PCP.
== END 2024-12-02 15:10 | disposition home or self-care (01) | DRG 389 ==
LOC: ICU 22:19 → ER 22:19 → OBSVTOIN 12-01 00:24 → ICU 12-01 00:52
PROVIDERS: ADMIT Family Medicine; ATTEND Family Medicine